=== PATIENT | female | born 2000 | race Caucasian/White ===

== ENCOUNTER → 2023-10-23 17:52 | Outpatient (REF) | payer OTHER, SELFPAY | LOC: RAD 17:52 | PROVIDERS: ATTENDING PHYSICIAN Student in an Organized Health Care Education/Training Program; FAMILY PHYSICIAN Nurse Practitioner Adult Health | DX: S82.891G Other fracture of right lower leg, subsequent encounter for closed fracture with delayed healing (principal) | CPT/HCPCS: 73610 ==